=== PATIENT | female | born 1960 | race Caucasian/White ===

== ENCOUNTER 2017-05-15 09:30 | Day surgery (SDC) | payer BC, OTHER ==
[~2017-05-15 09:30] MED LIST: ACETAMINOPHEN 1,000 MG/100 ML BTL IV ONE
[2017-05-15] MEDS ORDERED: KETOROLAC 30 MG/ML VIAL IVP ONE (09:31)
[2017-05-15] MEDS ORDERED: LIDOCAINE 2% MDV (20MG/ML) 20ML VIAL IV ONE (09:31)
[2017-05-15] MEDS ORDERED: SEVOFLURANE 250 ML INH ONE (09:31)
[2017-05-15] MEDS ORDERED: FENTANYL PF 100MCG/2ML VIAL IV ONE (09:31)
[2017-05-15] MEDS ORDERED: HYDROCODONE/APAP 7.5/325MG TABLET PO ONE (09:31)
[2017-05-15] MEDS ORDERED: PROPOFOL 10 MG/ML VIAL IV ONE (09:31)
--- NOTE | 2017-05-16 10:30 | Operative Note ---
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 OPERATION: De Quervain's fasciotomy of the left wrist using 3.5 loop magnification. DESCRIPTION OF PROCEDURE: This 57-year-old female was taken to the operating room and placed in the supine position on the operating room table. General anesthesia was induced. The left upper extremity was elevated. It was prepped with Hibiclens and draped in the usual sterile fashion. It was exsanguinated and the tourniquet inflated to 250 mmHg. A transverse incision was made 1 cm proximal to the radial styloid on the radial aspect of the wrist and dissection was carried down through the skin and subcutaneous tissue. Hemostasis obtained with the electrocautery. The proximal edge of the first dorsal compartment easily identified and it was split under direct vision from its proximal to its distal margin with the contents of the first dorsal compartment being identified. An extensive amount of dark-colored synovial fluid was seen to be emanating from this tendon sheath. It was almost a rust color. The tendons themselves appeared to be normal. I did not see any of the tendons going through a separate septated compartment. The abductor longus and extensor brevis slips all appeared to be in appropriate position. The wound was irrigated with lactated Ringer's solution and the subcutaneous tissue closed with 4-0 Vicryl and the skin with running subcutaneous 4-0 nylon. Sterile dressings were applied and the patient was taken to the recovery room in satisfactory condition. GROSS PATHOLOGY: This patient demonstrated extensive amount of tenosynovial fluid in the first dorsal compartment was dark adele color, not the usual clear fluid which is seen. The tendons themselves were normal. CC: Alirio CINTRON
== END 2017-05-15 12:55 | disposition home or self-care (01) ==
LOC: SUR 09:30
PROVIDERS: ATTEND Orthopaedic Surgery
DX: M65.4 Radial styloid tenosynovitis [de Quervain] (principal)
CPT/HCPCS: 25000; 01810; J1885; J3010